=== PATIENT | female | born 1970 | race Caucasian/White ===

== ENCOUNTER → 2020-03-10 | Outpatient (CLI) | payer BC ==
[~2020-03-10] MED LIST: HYDACE10B PO; NAPR500 PO
== END ==
LOC: LAB SHORT 19:11 → LAB 19:11
PROVIDERS: Nurse Practitioner Family
DX: Z01.419 Encounter for gynecological examination (general) (routine) without abnormal findings (principal)
CPT/HCPCS: G0145

== ENCOUNTER → 2020-07-21 | Outpatient (CLI) | payer BC | LOC: LAB SHORT 18:12 → LAB 18:12 | DX: L08.9 Local infection of the skin and subcutaneous tissue, unspecified (principal); D22.39 Melanocytic nevi of other parts of face; L82.0 Inflamed seborrheic keratosis; D23.5 Other benign neoplasm of skin of trunk; L81.4 Other melanin hyperpigmentation | CPT/HCPCS: 87070; 87205 ==

== ENCOUNTER → 2024-06-13 | Outpatient (CLI) | payer BC ==
[2024-06-16 14:36] LABS: PANCREATIC ELASTASE,FECAL >800 ug/g (>=100)
== END ==
LOC: LAB SHORT 07:00 → LAB 07:00
PROVIDERS: Registered Nurse
DX: R14.1 Gas pain (principal); R14.2 Eructation; R14.3 Flatulence; R19.5 Other fecal abnormalities
CPT/HCPCS: 82653